=== PATIENT | male | born 1985 | race African-American/Black ===

== ENCOUNTER 2017-07-15 03:54 | Emergency (ER) | payer OTHER ==
[~2017-07-15] VITALS: Ht 180.3 cm; Wt 68.0 kg
[2017-07-15 04:02] VITALS: BP 135/68; PULSE 87; RESP 20; TEMP 99.4; O2SAT 98
[2017-07-15 04:04] VITALS: BP 129/68; PULSE 89; RESP 20; O2SAT 98
[2017-07-15] MEDS ORDERED: ACETAMINOPHEN 500 MG CPLT PO ONE (04:15)
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
[2017-07-15] MEDS ORDERED: ONDANSETRON HCL 4 MG/2 ML VIAL IV PUSH ONE (05:45)
[2017-07-15] MEDS ORDERED: SODIUM CHLOR 0.9% 1000 ML INJ 1,000 ML IV ONE (05:45)
[2017-07-15 06:01] VITALS: BP 122/66; PULSE 86; RESP 20; TEMP 98; O2SAT 98
== END 2017-07-15 07:45 | disposition home or self-care (01) ==
LOC: NEPD 03:54
DX: F10.129 Alcohol abuse with intoxication, unspecified (principal); Y90.8 Blood alcohol level of 240 mg/100 ml or more; S00.511A Abrasion of lip, initial encounter; Y04.8XXA Assault by other bodily force, initial encounter; J45.909 Unspecified asthma, uncomplicated; Z72.0 Tobacco use
CPT/HCPCS: 70450; 72125; 72131; 80307; 96361; 96374; 99284; J2405; J7030